=== PATIENT | female | born 1940 | race African-American/Black ===

== ENCOUNTER 2017-09-11 08:58 | Day surgery (SDC) | payer OTHER ==
[2017-09-11] MEDS ORDERED: D5 LR 1000 ML 1,000 ML IV ONE (09:05)
[2017-09-11] MEDS ORDERED: NS 1000 ML 1,000 ML ONE (09:23)
[2017-09-11] MEDS ORDERED: DIPRIVAN VIAL 20 ML ONE (11:03)
[2017-09-11] MEDS ORDERED: XYLOCAINE 2 % (PLAIN) ONE (11:04)
[2017-09-11] MEDS ORDERED: DIPRIVAN VIAL 10 ML ONE (11:34)
[2017-09-11 12:17] VITALS: BP 146/78
== END 2017-09-11 12:05 | disposition home or self-care (01) ==
LOC: SURG1 08:58
PROVIDERS: ATTEND Internal Medicine Gastroenterology
PROC: 0DBK8ZX Excision of Ascending Colon, Via Natural or Artificial Opening Endoscopic, Diagnostic (ICD-10-PCS; principal; 2017-09-11 10:00)
PROC: 0DBM8ZX Excision of Descending Colon, Via Natural or Artificial Opening Endoscopic, Diagnostic (ICD-10-PCS; principal; 2017-09-11 10:00)
PROC: 0DBH8ZX Excision of Cecum, Via Natural or Artificial Opening Endoscopic, Diagnostic (ICD-10-PCS; principal; 2017-09-11 10:00)
PROC: 0DBN8ZX Excision of Sigmoid Colon, Via Natural or Artificial Opening Endoscopic, Diagnostic (ICD-10-PCS; principal; 2017-09-11 10:00)
PROC: 0DJD8ZZ Inspection of Lower Intestinal Tract, Via Natural or Artificial Opening Endoscopic (ICD-10-PCS; principal; 2017-09-11 10:00)
PROC: 0DBL8ZX Excision of Transverse Colon, Via Natural or Artificial Opening Endoscopic, Diagnostic (ICD-10-PCS; principal; 2017-09-11 10:00)
DX: Z12.11 Encounter for screening for malignant neoplasm of colon (principal); R19.4 Change in bowel habit; R63.4 Abnormal weight loss; K63.5 Polyp of colon; K64.0 First degree hemorrhoids; D12.5 Benign neoplasm of sigmoid colon; D12.4 Benign neoplasm of descending colon; D12.0 Benign neoplasm of cecum; D12.2 Benign neoplasm of ascending colon; D12.3 Benign neoplasm of transverse colon
CPT/HCPCS: 99100; A4217; J2001; J3490; J7120